=== PATIENT | male | born 1970 | race African-American/Black ===

== ENCOUNTER 2024-09-04 13:45 | Emergency (ER) | payer BC, MEDICARE ==
[~2024-09-04] VITALS: Ht 185.4 cm; Wt 117.0 kg
[2024-09-04 13:48] VITALS: O2SAT 97
[2024-09-04 13:54] VITALS: TEMP 36.7; O2SAT 98
[2024-09-04 14:22] VITALS: BP 153/100; PULSE 80; RESP 15
[2024-09-04] MEDS: HYDROCODONE/ACETAMINOPHEN 5/325MG TABLET PO ONE (14:22)
[2024-09-04] MEDS: LIDOCAINE 5% PATCH TOP SCH (14:23)
[2024-09-04] MEDS ORDERED: LIDO700A30 TP (15:27)
[2024-09-04] MEDS ORDERED: IBUP-2029 MT (15:27)
== END 2024-09-04 15:50 | disposition home or self-care (01) ==
LOC: ER 13:45
DX: M54.50 Low back pain, unspecified (principal); M25.551 Pain in right hip; I10 Essential (primary) hypertension; M51.372 Other intervertebral disc degeneration, lumbosacral region with discogenic back pain and lower extremity pain; V98.8XXA Other specified transport accidents, initial encounter; Y93.89 Activity, other specified; Y92.89 Other specified places as the place of occurrence of the external cause; Y99.8 Other external cause status
CPT/HCPCS: 72100; 72170; 99283